=== PATIENT | male | born 1950 | race Caucasian/White ===

== ENCOUNTER 2016-12-03 21:52 | Inpatient (IN) ==
--- NOTE | 2016-12-03 22:25 | Emergency Department Note ---
Disposition Clinical Impression: Chest pain of uncertain etiology Disposition: Admitted As Inpatient Condition: Good Time of Disposition: 03:54 Chest Pain HPI - General Chief Complaint: ED Chest Pain Stated Complaint: Chest Pain Time Seen by Provider: 12/03/16 21:59 Source: patient, EMS Limitations: no limitations Vital Signs Reviewed: Yes Nursing Notes Reviewed: Yes - History of Present Illness HPI Narrative: Mister Caicedo, 66-year-old male, presents from the OR with chief complaint of chest pain. Onset 17:00 this evening. Described as left midchest sharp stabbing with radiation to his left shoulder with associated left arm weakness. Has been intermittent since onset with the duration of 56 minutes with each episode. Nothing noted to improve or worsen his chest pain. ROS: Pos: Intermittent chest pain Negative: No unusual dyspnea, no nausea, no diaphoresis. No back pain, no abdominal pains. At outlying facility, patient received 325 mg aspirin. He also received sublingual nitroglycerin 3 tablets with no relief or change in his symptoms. PMH: A Kamari exposure, type I diabetic, peripheral neuropathy, COPD requiring 2 L oxygen during the day and really at night. Patient's last cardiac catheter and stress test were greater than 10 years ago. Severity scale (1-10): 0 - Related Data Home Medications Medication Instructions Recorded Confirmed Albuterol Sulfate 3 mg IH BID 12/04/16 12/04/16 Albuterol Sulfate [Albuterol 2 puff IH Q4HR PRN 12/04/16 12/04/16 Inhaler] Budesonide/Formoterol 160/4.5 2 puff IH BID 12/04/16 12/04/16 [Symbicort 160/4.5] Cholecalciferol (Vitamin D3) 1,000 unit PO DAILY 12/04/16 12/04/16 [Vitamin D] Cyanocobalamin (Vitamin B-12) 1,000 mcg PO BID 12/04/16 12/04/16 [Vitamin B12] Cyclobenzaprine HCl 10 mg PO TID PRN 12/04/16 12/04/16 Insulin Glargine [Lantus] 0 unit 12/04/16 12/04/16 Magnesium Oxide [Magnesium] 400 mg PO DAILY 12/04/16 12/04/16 Mirtazapine [Remeron] 30 mg PO HS 12/04/16 12/04/16 Morphine Immed Rel [Morphine 15 mg PO DAILY 12/04/16 12/04/16 Sulfate] Morphine Immed Rel [Morphine 45 mg PO BID 12/04/16 12/04/16 Sulfate] Naloxone HCl [Narcan] 4 mg NS PRN PRN 12/04/16 12/04/16 Pregabalin [Lyrica] 150 mg PO TID 12/04/16 12/04/16 Ranitidine HCl [Acid Repairer] 150 mg PO HS PRN 12/04/16 12/04/16 Sildenafil Citrate [Viagra] 100 mg PO PRN PRN 12/04/16 12/04/16 Tiotropium [Spiriva] 2 puff IH DAILY 12/04/16 12/04/16 Allergies Allergy/AdvReac Type Severity Reaction Status Date / Time codeine Allergy Hives Verified 12/03/16 21:54 Oxycodone [From OxyContin] Allergy Hives Verified 12/03/16 21:54 All systems ED: reviewed and negative except as stated. Chest Pain PMH - Past Medical History Medical history: Reports: COPD, diabetes, GERD Psychiatric history: Reports: no psych history - Social History Smoking Status: Current every day smoker Alcohol use: Reports: none Drug use: Reports: none Physical Exam Vital Signs Reviewed General: Patient is alert, oriented, and in no acute distress. He is well- appearing, age-appropriate, in late complaint bed. HEENT: No facial asymmetry. Head is normocephalic and atraumatic. PERRL, EOMI. because of moist. Trachea midline. Cardiovascular: Heart regular rate and rhythm without clicks, rubs, gallops, or murmurs. No JVD. PMI nondisplaced. Pedal edema. Bilateral radial pulses 2/ 44. Respiratory: Symmetric chest rise with good respiratory effort. Bilateral breath sounds are clear without wheezing, crackles, or rhonchi. Abdomen: Bowel sounds present normoactive x-4 quadrants. Abdomen is soft, nondistended, and nontender. No organomegaly noted. Psych: Patient's affect is appropriate for situation. - General Limitations: no limitations General appearance: alert Course Course Narrative: Patient presents for chest pain concerning for ACS. Most significant comorbidity is history of smoking oxygen dependent COPD as well as type I diabetic. EKG on intake is unremarkable. Lab work pending. Chest x-ray pending. At outlying facility, patient's symptoms did not change with some neglect or glycerin. He already received aspirin. Further workup and management pending results. Consider admission for chest pain rule out ACS. Patient is hyperglycemic. Initially was going to give 10 units of subcutaneous regular insulin however patient does have his insulin pump. Request that he bolus himself according to his normal correction ratio. Patient has mild hyponatremia and hyperkalemia as well as mild hypocalcemia. No medical management indicated at this point. Troponin is 0. EKG unremarkable. Chest x-ray unremarkable from a cardiac standpoint. I discussed the patient with the admitting hospitalist, Dr. Storey, who agrees to accept the patient for chest pain rule out ACS. Chest X-Ray 12/03/16 21:59 IMPRESSION: Multifocal opacities bilaterally, nonspecific but raising the possibility of pneumonia. Note that some of these have a lobulated appearance and probably correspond to the masslike opacities identified on the chest CT previously. D/ / Ajit Triana MD / Ajit Triana MD Interpreting Provider: Ajit Triana MD Vital Signs Temperature 98.8 F 12/03/16 21:55 Pulse Rate 87 12/03/16 21:55 Respiratory Rate 18 12/03/16 21:55 Blood Pressure 147/80 12/03/16 21:55 O2 Sat by Pulse Oximetry 97 12/03/16 21:55 Temperature 99.0 F 12/04/16 01:11 Pulse Rate 87 12/04/16 01:11 Respiratory Rate 16 12/04/16 01:11 Blood Pressure 120/73 12/04/16 01:11 O2 Sat by Pulse Oximetry 95 12/04/16 01:11 Oxygen Delivery Oxygen Delivery Nasal Cannula Chest Pain - Lab Data Result diagrams: 12/03/16 22:12 12/03/16 22:12 Lab Results 12/03/16 12/03/16 12/03/16 Range/Units 22:12 22:12 22:12 WBC 13.8 H (4.3-11.1) K/mcL RBC 3.68 L (4.19-5.50) M/mcL Hgb 11.0 L (12.9-16.9) g/dL Hct 31.7 L (37.5-50.1) % MCV 86.1 (83.0-100.0) fL MCH 29.9 (28.0-33.3) pg MCHC 34.7 (31.6-35.5) g/dL RDW 13.7 (11.5-14.5) % Plt Count 296 (140-400) K/mcL MPV 10.5 (9.4-12.4) fL Immature Gran % 0.4 (0-4) % Seg Neutrophils % 73.0 % Lymphocytes % 15.9 % Monocytes % 7.9 % Eosinophils % 2.5 % Basophils % 0.3 % Neutrophils # 10.0 H (1.6-8.9) K/mcL Lymphocytes # 2.2 (0.6-4.6) K/mcL Monocytes # 1.1 (0.0-1.3) K/mcL Eosinophils # 0.4 (0.0-0.6) K/mcL Basophils # 0.0 (0.0-0.2) K/mcL PT 12.4 H (9.4-12.1) Seconds INR 1.1 APTT 31.5 (26.0-36.0) Seconds Sodium 135 L (136-145) mEq/L Potassium 4.8 H (3.5-4.5) mEq/L Chloride 103 (98-109) mEq/L Carbon Dioxide 24 (19-29) mEq/L BUN 11 (8-26) mg/dL Creatinine 1.02 (0.72-1.25) mg/dL Est GFR ( Amer) > 60 (> 60) Est GFR (Non-Af Amer) > 60 (> 60) BUN/Creatinine Ratio 11 (6-26) Glucose 353 H (70-99) mg/dL Calculated Osmolality 294 (280-300) Calcium 8.4 L (8.6-10.8) mg/dL Troponin I (0-0.03) ng/mL 12/03/16 Range/Units 22:12 WBC (4.3-11.1) K/mcL RBC (4.19-5.50) M/mcL Hgb (12.9-16.9) g/dL Hct (37.5-50.1) % MCV (83.0-100.0) fL MCH (28.0-33.3) pg MCHC (31.6-35.5) g/dL RDW (11.5-14.5) % Plt Count (140-400) K/mcL MPV (9.4-12.4) fL Immature Gran % (0-4) % Seg Neutrophils % % Lymphocytes % % Monocytes % % Eosinophils % % Basophils % % Neutrophils # (1.6-8.9) K/mcL Lymphocytes # (0.6-4.6) K/mcL Monocytes # (0.0-1.3) K/mcL Eosinophils # (0.0-0.6) K/mcL Basophils # (0.0-0.2) K/mcL PT (9.4-12.1) Seconds INR APTT (26.0-36.0) Seconds Sodium (136-145) mEq/L Potassium (3.5-4.5) mEq/L Chloride (98-109) mEq/L Carbon Dioxide (19-29) mEq/L BUN (8-26) mg/dL Creatinine (0.72-1.25) mg/dL Est GFR ( Amer) (> 60) Est GFR (Non-Af Amer) (> 60) BUN/Creatinine Ratio (6-26) Glucose (70-99) mg/dL Calculated Osmolality (280-300) Calcium (8.6-10.8) mg/dL Troponin I 0.00 (0-0.03) ng/mL Heart Score - Score History: Moderately Suspicious EKG: Normal Age: Greater than 65 Risk Factors: Equal/Greater than 3 risk factor or history of atherosclerotic disease Troponin: Less than normal limit HEART Score Total: 5 Attestation Statement - Attestation Attestation: I, Dontae Merrill MD, personally evaluated this patient and discussed their management with the resident physician. I reviewed the resident's note and agree with the documented findings, medical decision making, and plan of care. 66-year-old male transferred here from the OR for evaluation of chest pain which started about 5 PM this evening. No history of heart disease or previous episodes of chest pain. Patient is diabetic. He had left-sided chest pain with radiation to the left shoulder. [facility] with some improvement in the pain. He also received morphine with total relief of his discomfort. He denies any chest pain here. On examination patient is a well-developed thin elderly male in no acute distress. He is alert and oriented 3. There is no cyanosis or diaphoresis. Chest is nontender to palpation. Breath sounds are decreased but equal bilaterally with no rales or wheezes noted. Heart regular rate and rhythm. Soft and nontender with normal bowel sounds. EKG shows a normal sinus rhythm with no acute changes. Chest x-ray showed multifocal opacities bilaterally, nonspecific but raising the possibility of pneumonia. Labs reviewed. Troponin 0.00. The hospitalist, Dr. Storey, was consulted and accepted admission of the patient.
[2016-12-03 22:50] LABS: Basophils % 0.3 %; Eosinophils # 0.4 K/mcL (0.0-0.6); Eosinophils % 2.5 %; Hematocrit 31.7 % (37.5-50.1); Immature Granulocytes % 0.4 % (0-4); Lymphocytes # 2.2 K/mcL (0.6-4.6); Lymphocytes % 15.9 %; Mean Corpuscular HGB Conc 34.7 g/dL (31.6-35.5); Mean Corpuscular Hemoglobin 29.9 pg (28.0-33.3); Mean Corpuscular Volume 86.1 fL (83.0-100.0); Mean Platelet Volume 10.5 fL (9.4-12.4); Monocytes # 1.1 K/mcL (0.0-1.3); Monocytes % 7.9 %; Platelet Count 296 K/mcL (140-400); Red Blood Count 3.68 M/mcL (4.19-5.50); Red Cell Distribution Width 13.7 % (11.5-14.5)
[2016-12-03 22:55] LABS: INR 1.1; Prothrombin Time 12.4 Seconds (9.4-12.1)
[2016-12-03 22:57] LABS: Activated Partial Thrombo Time 31.5 Seconds (26.0-36.0)
[2016-12-03 23:06] LABS: BUN/Creatinine Ratio 11 (6-26); Blood Urea Nitrogen 11 mg/dL (8-26); Calcium 8.4 mg/dL (8.6-10.8); Carbon Dioxide 24 mEq/L (19-29); Chloride 103 mEq/L (98-109); Glucose 353 mg/dL (70-99); Osmolality,Calculated 294 (280-300); Potassium 4.8 mEq/L (3.5-4.5); Sodium 135 mEq/L (136-145); eGFR For African Americans > 60 (> 60); eGFR For Non-African Americans > 60 (> 60)
[2016-12-03] MEDS ORDERED: Insulin Regular, Human 100 UNIT/ML SQ ONE (23:11)
--- NOTE | 2016-12-04 01:36 | Internal Med History&Physical ---
Date of Encounter: 12/04/16 Time of Encounter: 01:35 Assessment and Plan (1) Chest pain Current visit: Yes Status: Acute He has no known history of CAD but has significant risk factors for CAD; hypertension/type I diabetes/active smoker/age, his EKG was non-ischemic, troponin level was unremarkable when checked, it will be reasonable in this scenario to order a stress test due to his significant risk factors, in the meanwhile we will cycle troponin Q6H, telemonitor, check lipid profile and A1c for risk stratification, NPO until stress test Qualifiers: Chest pain type: intercostal pain Qualified Code(s): R07.82 - Intercostal pain (2) Hyperkalemia Current visit: Yes Status: Acute Likely from cellular shift, will follow BMP (3) Diabetes Current visit: Yes Status: Chronic History of type I diabetes mellitus diagnosed about 2 to 3 years ago on insulin pump, we do not know his A1c but he was hyperglycemic on presentation, we will continue his home insulin pump with sliding scale insulin for hyperglycemia coverage, FS Q6H since he is NPO, will update A1c Qualifiers: Diabetes mellitus type: type 1 Diabetes mellitus complication status: with neurologic complications Diabetes mellitus complication detail: with polyneuropathy Qualified Code(s): E10.42 - Type 1 diabetes mellitus with diabetic polyneuropathy (4) COPD (chronic obstructive pulmonary disease) Current visit: Yes Status: Chronic He is an active cigarette smoker, not ready to quit, reports that he has tried everything and nothing has worked, will continue his home oxygen, tiotropium, symbicort and PRN nebs Qualifiers: COPD type: chronic bronchitis Chronic bronchitis type: simple Qualified Code(s): J41.0 - Simple chronic bronchitis (5) Peripheral neuropathy Current visit: Yes Status: Chronic From diabetes mellitus, continue pregabalin Qualifiers: Peripheral neuropathy type: polyneuropathy associated with underlying disease Qualified Code(s): G63 - Polyneuropathy in diseases classified elsewhere (6) Chronic back pain Current visit: Yes Status: Chronic On morphine at home which will continue Qualifiers: Back pain location: low back pain Back pain laterality: bilateral Sciatica presence: without sciatica Qualified Code(s): M54.5 - Low back pain; G89.29 - Other chronic pain; G89.29 - Other chronic pain (7) GERD (gastroesophageal reflux disease) Current visit: Yes Status: Chronic Continue ranitidine Qualifiers: Esophagitis presence: without esophagitis Qualified Code(s): K21.9 - Gastro -esophageal reflux disease without esophagitis Internal Medicine - H&P: HPI Chief complaint: Chest pain Admitted From: Emergency Dept Plans for Post Hospital Care: Home History of present illness: Mr. Caicedo is a 66 year old male with a history of hypertension/COPD/type 1 diabetes mellitus diagnosed about 2 years ago was transferred here for chest pain from the [facility]. Patient reports that he was in his usual state of health until around 5 PM on 12/03 when he began experiencing chest pain whilst at the dinner table. The pain was located on the left side of the chest, it was sharp in character, intermittent in timing, radiated to the left shoulder, it was 6/10 in severity. It had no relieving or aggravating factors. The pain was associated with a feeling of apprehension, but denies lightheadedness, diaphoresis, palpitations, dyspnea, nausea or vomiting. He was brought to the ER of [facility] for further evaluation and management due to persistent pain. He denies fever, chills, change in urinary all bowel habits. Past medical history hypertension type I diabetes mellitus peripheral neuropathy chronic back pain erectile dysfunction Gerd vitamin D deficiency COPD on home oxygen depression anxiety myofascial pain gastroparesis insomnia tobacco abuse hypothyroidism solitary pulmonary nodule sleep apnea atherosclerosis Past surgical history lung biopsy/resection, benign finding Social history He is and lives at home, he is some active cigarette smoker has been smoking for about 52 years now about 1 to 2 packs a day, he denies alcohol use or illicit drugs. Family history Mother when he was 12 years old so he does not know what she had, father had lung cancer from smoking, no family history of AK, hypertension, his son has diabetes mellitus Past Med Surg Social Fam HX - Past Medical History Medical history: COPD, diabetes, GERD Psychiatric history: no psych history - Past Surgical History Surgical History: other (Partial Lung resection ) - Social History Smoking Status: Current every day smoker Packs per day: 1 to 2 packs a day for 52 years now Smokeless Tobacco Status: No Alcohol use: none Drug use: none Current living situation: Home - Independent, With Family Activity Level: Independent ambulation - Family History Mother Hx Family Cancer: Yes - Additional Family History Additional family history: His son has diabetes mellitus, no family history of hypertension or AK, father had lung cancer, mother when he was 12 years old so he does not know her medical condition(s) if any Internal Medicine - H&P: Meds Albuterol Sulfate 3 mg IH BID 12/04/16 [History] Albuterol Sulfate [Albuterol Inhaler] 2 puff IH Q4HR PRN 12/04/16 [History] Budesonide/Formoterol 160/4.5 [Symbicort 160/4.5] 2 puff IH BID 12/04/16 [ History] Cholecalciferol (Vitamin D3) [Vitamin D] 1,000 unit PO DAILY 12/04/16 [History] Cyanocobalamin (Vitamin B-12) [Vitamin B12] 1,000 mcg PO BID 12/04/16 [History] Cyclobenzaprine HCl 10 mg PO TID PRN 12/04/16 [History] Insulin Glargine [Lantus] 0 unit 12/04/16 [History] Magnesium Oxide [Magnesium] 400 mg PO DAILY 12/04/16 [History] Mirtazapine [Remeron] 30 mg PO HS 12/04/16 [History] Morphine Immed Rel [Morphine Sulfate] 15 mg PO DAILY 12/04/16 [History] Morphine Immed Rel [Morphine Sulfate] 45 mg PO BID 12/04/16 [History] Naloxone HCl [Narcan] 4 mg NS PRN PRN 12/04/16 [History] Pregabalin [Lyrica] 150 mg PO TID 12/04/16 [History] Ranitidine HCl [Acid Bacteriology Technician] 150 mg PO HS PRN 12/04/16 [History] Sildenafil Citrate [Viagra] 100 mg PO PRN PRN 12/04/16 [History] Tiotropium [Spiriva] 2 puff IH DAILY 12/04/16 [History] 3 Allergy/AdvReac Type Severity Reaction Status Date / Time codeine Allergy Hives Verified 12/03/16 21:54 Oxycodone [From OxyContin] Allergy Hives Verified 12/03/16 21:54 All Systems PM: A 10-system review of systems was performed and is negative for pertinent findings except as documented above in the HPI. - Constitutional Vitals: Temp Pulse Resp BP Pulse Ox 99.0 F 87 16 120/73 95 10/26/17 01:11 12/04/16 01:11 12/04/16 01:11 12/04/16 01:11 12/04/16 01:11 GENERAL: Adult male, lying in bed, Alert, not in obvious pain or distress HEENT: NC/AT, EOMI, PERRLA, anicteric sclera, normal conjunctiva, supple, clear nares, moist mucous membranes, RESP: Lungs are clear to auscultation bilaterally with prolonged expiratory phase, with good AE, no crackles or wheeze CARDIO: Normal heart sounds with RRR, no murmurs, no JVD, no ankle edema GI: Soft, full, no tenderness, no organomegaly felt, normal bowel sounds heard MUSCULOSKELETAL: Grossly normal movements bilaterally, no deformities noted, NEUROLOGIC: CN 2-12 intact grossly. No gross motor/sensory deficit appreciated, PSYCHIATRY: AAO x 3. Mood is fair SKIN: a few tattoos Internal Med - H&P Results - Labs CBC & Chem 7: 12/03/16 22:12 12/03/16 22:12 - EKG Data -: EKG Interpreted by Myself EKG shows normal: sinus rhythm - EKG Data Prior EKG available for review: no - Diagnostic Studies Chest x-ray Status: image reviewed by me
[2016-12-04] MEDS ORDERED: Naloxone 0.4 MG/ML INJ IVP PRN (01:56)
[2016-12-04] MEDS ORDERED: Famotidine 20 MG TABLET PO PRN (03:32)
[2016-12-04] MEDS ORDERED: *HR* Dextrose 50 % in Water (Syg) 50 ML SYRINGE IVP PRN (03:34)
[2016-12-04] MEDS ORDERED: Dextrose Gel 15 GM PO PRN ×2 (03:34)
[2016-12-04] MEDS ORDERED: D5% in Water 1,000 ML IVC PRN (03:34)
[2016-12-04] MEDS ORDERED: Regadenoson 0.4 MG/5 ML SYRINGE IVP ONE (05:43)
[2016-12-04] MEDS ORDERED: *HR* Enoxaparin 40 MG/0.4 ML SYRINGE SQ SCH (06:00)
[2016-12-04 06:17] LABS: Hemoglobin A1C 7.9 %
[2016-12-04 06:32] LABS: BUN/Creatinine Ratio 13 (6-26); Blood Urea Nitrogen 12 mg/dL (8-26); Calcium 8.4 mg/dL (8.6-10.8); Carbon Dioxide 25 mEq/L (19-29); Chloride 109 mEq/L (98-109); Chol/HDL Ratio 2.3 (0-4.9); Glucose 184 mg/dL (70-99); HDL Cholesterol 28 mg/dL (40-59); LDL Cholesterol,Calculated 31 mg/dL (0-99); Magnesium 1.7 mg/dL (1.6-2.6); Osmolality,Calculated 293 (280-300); Phosphorous 3.7 mg/dL (2.3-4.7); Potassium 4.2 mEq/L (3.5-4.5); Sodium 139 mEq/L (136-145); Triglycerides 28 mg/dL (< 150); eGFR For African Americans > 60 (> 60); eGFR For Non-African Americans > 60 (> 60)
[2016-12-04 06:33] LABS: Cholesterol 65 mg/dL (< 200)
[2016-12-04] MEDS ORDERED: Magnesium Oxide 400 MG TABLET PO SCH (09:00)
[2016-12-04] MEDS ORDERED: Cyanocobalamin (B-12) 1,000 MCG TABLET PO SCH (09:00)
[2016-12-04] MEDS ORDERED: Tiotropium 18 MCG inhalation IH SCH (09:00)
[2016-12-04] MEDS ORDERED: *HR* Morphine Immed Rel 15 MG TABLET PO SCH (09:00)
[2016-12-04] MEDS ORDERED: Cholecalciferol (D-3) 1,000 UNIT TABLET PO SCH (09:00)
[2016-12-04] MEDS ORDERED: Budesonide/Formoterol 160/4.5 MDI IH SCH (10:00)
[2016-12-04] MEDS: Pregabalin 75 MG CAPSULE PO SCH ×2 (10:24→14:06)
[2016-12-04] MEDS: *HR* Morphine Immed Rel 30 MG TABLET PO SCH ×2 (10:36→11:25)
[2016-12-04] MEDS ORDERED: Azithromycin 250 MG TABLET PO SCH (13:30)
--- NOTE | 2016-12-04 14:02 | Event Note ---
Date of Encounter: 12/04/16 Time of Encounter: 10:55 Seen and evaluated at bedside His only complain is of pain in his LE which are chronic and for which he takes morphine He also requested to be allowed to go out to smoke and or go home He is admitted for chest pain r/o ACS Stress test has been done and is pending report He has a PMH of tobacco abuse, GERD, chronic back pain with neuropathy, DM, COPD , Pulmonary nodules He reports no chest pain at the time of review He reports his lung nodules are chronic and have been biopsied several years ago without evidence for malignancy, his PCP is following Physical exam is unremarkable, no wheezing, no distress, HS S1, S2 only Plan: resume home meds, adjust morphine to home dose, follow Stress test report
[2016-12-04 14:43] VITALS: BP 128/67
[2016-12-04] MEDS ORDERED: *HR* Morphine Immed Rel 30 MG TABLET PO SCH (17:00)
--- NOTE | 2016-12-04 17:05 | Electrocardiograph Report ---
[place] [id number] Test Date: 2016-12-03 Pat Name: Oneil Caicedo Department: 103 Room: 3B Gender: M Director Professional Services: ZANDER : 1950 Requested By: Gil Romano Order Number: [id number] Reading MD: Og Schwartz Measurements Intervals [place] Rate: 84 P: 51 WA: 122 QRS: 74 QRSD: 86 T: 64 QT: 360 QTc: 401 Interpretive Statements SINUS RHYTHM Electronically Signed On 12-04-2016 17:04:07 EDT by Og Schwartz
[2016-12-04] MEDS ORDERED: Mirtazapine 15 MG TABLET PO SCH (21:00)
== END 2016-12-04 17:23 | disposition home or self-care (01) | DRG 313 ==
LOC: EMEROO 21:52 → 3BNU 23:55 → SUATTDRO 23:55 → 3BNU 12-04 00:50
PROVIDERS: ADMIT Internal Medicine; ATTEND Internal Medicine